=== PATIENT | male | born 1965 | race Caucasian/White ===

== ENCOUNTER 2022-02-08 18:50 | Outpatient (CLI) | payer OTHER, SELFPAY | END 2022-02-08 18:51 | disposition home or self-care (01) | LOC: AMB 02-16 15:38 | PROVIDERS: Visit Provider Emergency Medicine Emergency Medical Services | DX: R50.9 Fever, unspecified (principal); R10.9 Unspecified abdominal pain | CPT/HCPCS: A0425; A0433 ==

== ENCOUNTER 2022-06-24 00:28 | Outpatient (CLI) | payer MEDICARE, OTHER, SELFPAY | END 2022-06-24 00:29 | disposition home or self-care (01) | LOC: AMB 07-19 10:39 | PROVIDERS: Visit Provider Internal Medicine | DX: R21 Rash and other nonspecific skin eruption (principal) | CPT/HCPCS: A0425; A0428 ==

== ENCOUNTER 2022-08-04 16:52 | Emergency (ER) | payer MEDICARE, OTHER, SELFPAY ==
[2022-08-04] VITALS (30 sets, daily range): BP systolic 152–246; BP diastolic 99–129; PULSE 80–116; RESP 20; TEMP 36.6–37.6; O2SAT 84–92
--- NOTE | 2022-08-04 17:03 | CRLHL7_ITS ---
For Patients: As a result of the Century Cures Act, medical imaging exams and procedure reports are released immediately into your electronic medical record. You may view this report before your referring provider. If you have questions, please contact your health care provider. INDICATION: Fever. TECHNIQUE: CT abdomen and pelvis without contrast. Coronal and sagittal reformats were generated. COMPARISON: None. FINDINGS: Lower chest: Patchy bibasilar opacities are likely atelectasis or scarring. The included heart is normal in size. Liver: The liver attenuation is normal. Evaluation for hepatic masses is limited without contrast. Gallbladder and bile ducts: Surgically absent gallbladder. Normal caliber bile ducts. Spleen: Unremarkable. Soft tissue density nodule adjacent to the spleen is likely a splenule. Pancreas: Diffuse pancreatic atrophy. No ductal dilation. Adrenal glands: Unremarkable. No nodules. Kidneys and Ureters: Several scattered calcifications could be small stones or cortical calcifications. Lymph Nodes and Retroperitoneum: Unremarkable. Vasculature: Unremarkable. GI tract: The rectum is not seen, raising the possibility of abdominal peroneal resection. Left lower quadrant end colostomy with parastomal hernia of colon, which is not obstructed. Bowel loops are normal in caliber. Moderate amount of colonic stool. Questionable diverting ostomy in the midline superiorly. Peritoneum/Abdominal Wall: Severe diffuse muscular atrophy. Right inguinal hernia, containing nonobstructed bowel. Pelvic Viscera: Unremarkable. Bladder: Unremarkable. Bones: The bones are demineralized. Multilevel degenerative changes. Destructive changes of the L4 and L5 vertebral bodies, with extensive heterotopic ossification. Destructive changes of the left femoral head and neck, with chronic appearing posterior dislocation of the femur. The right femur is not seen, possibly related to previous amputation. Extensive heterotopic calcifications throughout the pelvis. IMPRESSION: 1. Severe muscular atrophy, with destructive changes of the L4 and L5 vertebral bodies and left femur, with chronic appearing dislocation of the left hip. Extensive heterotopic ossification. 2. Absence of the right femur, possibly from amputation. 3. Changes suggestive of abdominal peroneal resection, with left lower quadrant end colostomy and apparent midline diverting ileostomy. 4. No CT findings to explain the cause of fever, within limitations of lack of contrast Please note that all CT scans at this facility use dose modulation, iterative reconstruction, and/or weight-based dosing when appropriate to reduce radiation dose to as low as reasonably achievable. Dictated by Mariano Foreman MD @ 08/04/2022 6:55:58 PM (Electronically Signed)
--- NOTE | 2022-08-04 17:05 | CRLHL7_ITS ---
For Patients: As a result of the Cures Act, medical imaging exams and procedure reports are released immediately into your electronic medical record. You may view this report before your referring provider. If you have questions, please contact your health care provider. INDICATION: Fever. TECHNIQUE: Chest 1 views. COMPARISON: None. FINDINGS: Cardiovascular and mediastinum: Mild cardiomegaly. Left chest wall pacemaker device. Lungs and pleural spaces: Lingular rounded nodular opacity. No sign of pleural effusion. No pneumothorax. Bones and soft tissues: No significant findings. IMPRESSION: Lingular rounded nodular opacity, possibly airspace disease. Recommend short term repeat chest radiograph after treatment to evaluate for resolution. Dictated by Shalom Torrez MD @ 08/04/2022 6:42:02 PM (Electronically Signed)
--- NOTE | 2022-08-04 17:09 | ED_ITS ---
HPI - General Adult General Date Seen: 08/04/22 Chief complaint: Fever Stated complaint: Fever Time Seen by Provider: 08/04/22 16:57 Source: patient Mode of arrival: EMS Limitations: no limitations and physical limitation History of Present Illness HPI narrative: Patient is a 56-year-old gentleman who is a quadriplegic presents from a intermediate in a [place]. He is concerned that he may have a UTI, as he had a fever there, although here and in EMS there is no documented fever. Tells me is normal blood pressure is 95 and he is running 98. Has a urostomy, on the right side of his abdomen, and also a colostomy. Has had chronic abdominal pain and says that is maybe a little worse, denies any coughing wheezing had a COVID test there that was negative. Normally and has never been to this institution for his care he normally goes to the [facility] system. Has a history of bilateral above knee amputations, Onset (ago): hour(s) Related Data Home Medications Medication Instructions Recorded Confirmed baclofen 20 mg tablet mg 08/04/22 collagenase clostridium histo. 250 topical 08/04/22 unit/gram topical ointment (Santyl) cyclosporine 0.05 % eye drops in a drp 08/04/22 dropperette (Restasis) duloxetine 60 mg capsule,delayed mg PO 08/04/22 release furosemide 20 mg tablet mg 08/04/22 furosemide 40 mg tablet mg 08/04/22 gabapentin 300 mg capsule mg 08/04/22 ipratropium 20 mcg-albuterol 100 inhalation 08/04/22 mcg/actuation mist for inhalation (Combivent Respimat) ketoconazole 2 % shampoo topical 08/04/22 midodrine 10 mg tablet mg 08/04/22 pantoprazole 40 mg tablet,delayed mg PO 08/04/22 release phenytoin sodium extended 30 mg mg PO 08/04/22 capsule (Dilantin) potassium citrate 10 mEq (1,080 meq PO 08/04/22 mg) tablet,extended release trazodone 50 mg tablet mg 08/04/22 Allergies Allergy/AdvReac Type Severity Reaction Status Date / Time hydroxyzine Allergy Verified 08/04/22 17:16 ketamine Allergy Verified 08/04/22 17:16 piperacillin Allergy Verified 08/04/22 17:16 pregabalin Allergy Verified 08/04/22 17:16 tazobactam [From Zosyn] Allergy Verified 08/04/22 17:16 vancomycin Allergy Verified 08/04/22 17:16 Review of Systems Status of ROS: Reports: 10 or more systems reviewed and unremarkable except as noted in History and below [facility] Social History Smoking Status: Unknown if ever smoked Exam Narrative: Exam Narrative: On examination in room 7, he is seen, his vital signs are stable, with a slight elevation of his blood pressure. He has a little of Thor of on what is going on, he has noted no new rashes, but admits he really can not see anything. Oropharynx is normal chest is clear air entry bilaterally with normal heart sounds abdomen is very obese, he has a good stool coming out of the left side of his colostomy in his right urostomy is having clear fluid also. He is making urine also. Skin reveals some a flexural candidiasis, but really no other acute abnormality. Const: Vital Signs, click to edit/add: Vital Signs - 24 hr 08/04/22 17:07 08/04/22 17:30 08/04/22 18:58 Temperature 98.6 F 99.7 F H Pulse Rate Pulse Rate [Right Pulse Oximeter] 110 H 103 H Respiratory Rate 20 Blood Pressure Blood Pressure [Le ft Upper Arm] 192/111 H 152/99 H Pulse Oximetry 92 89 Oxygen Delivery Me thod Room Air Room Air 08/04/22 17:38 08/04/22 18:00 08/04/22 18:44 Temperature Pulse Rate 103 H 99 89 Pulse Rate [Right Pulse Oximeter] Respiratory Rate Blood Pressure Blood Pressure [Le ft Upper Arm] Pulse Oximetry 89 89 88 Oxygen Delivery Me thod 08/04/22 18:46 08/04/22 19:30 08/04/22 19:54 Temperature 97.8 F Pulse Rate 80 Pulse Rate [Right Pulse Oximeter] Respiratory Rate Blood Pressure 224/125 H Blood Pressure [Le ft Upper Arm] Pulse Oximetry 84 L 90 Oxygen Delivery Me thod Room Air 08/04/22 19:00 08/04/22 19:03 08/04/22 19:31 Temperature Pulse Rate 88 102 H 107 H Pulse Rate [Right Pulse Oximeter] Respiratory Rate Blood Pressure 246/129 H Blood Pressure [Le ft Upper Arm] Pulse Oximetry 90 91 92 Oxygen Delivery Me thod 08/04/22 19:32 08/04/22 19:33 08/04/22 20:00 Temperature Pulse Rate 101 H 99 114 H Pulse Rate [Right Pulse Oximeter] Respiratory Rate Blood Pressure 201/128 H Blood Pressure [Le ft Upper Arm] Pulse Oximetry 90 89 90 Oxygen Delivery Me thod 08/04/22 20:02 08/04/22 20:03 08/04/22 20:30 Temperature Pulse Rate 116 H 110 H 107 H Pulse Rate [Right Pulse Oximeter] Respiratory Rate Blood Pressure 176/108 H Blood Pressure [Le ft Upper Arm] Pulse Oximetry 91 91 91 Oxygen Delivery Me thod 08/04/22 20:32 Temperature Pulse Rate 115 H Pulse Rate [Right Pulse Oximeter] Respiratory Rate Blood Pressure 174/123 H Blood Pressure [Le ft Upper Arm] Pulse Oximetry 89 Oxygen Delivery Me thod Documenting provider has reviewed patient's vital signs: yes Course Course Hospital Course: Review of labs reassuring, white blood cell count was normal. his lactate was normal, procalcitonin was normal, urinalysis in a chronically urostomy also was normal, with only 10-25 white cells. His temperature actually orally was also normal, although he states that he never ones a temperature, orally. I explained to him that if he wants to be treated with antibiotics some well I can do this if he feels that this is UTI but rate now I do not feel like he has impending sepsis, his chest x-ray did shown around opacity, but I want a look at other x-rays from [facility] before we say that that is new, I was able to review admission from 07/18/[address] [facility] use admitted for hypotension and question of whether was sepsis, L of his markers of sepsis like today were negative, he never grew anything in his blood, and there was a chronic finding on his left side of his chest, noted on chest x-ray. He did become very angry with them their over his narcotics. I suspect part of his coming to [place] today was because of that interaction. 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 I did offer to put him on antibiotics but he did not want to be on antibiotics going back to the intermediate. Reevaluation(s) Reevaluation #1: I find him resting and sleeping in the room, his temperature done orally was 97.8, pulse was 115, blood pressures come down nicely to 174/123. Time: 21:04 Vital Signs Vital signs: Initial Vital Signs Temperature 98.6 F 08/04/22 17:07 Temperature Source Temporal Artery Scan 08/04/22 17:07 Pulse Rate 110 H 08/04/22 17:07 Respiratory Rate 20 08/04/22 17:07 Blood Pressure 192/111 H 08/04/22 17:07 Blood Pressure Mean 138 08/04/22 17:07 Blood Pressure Position Supine 08/04/22 17:07 Pulse Oximetry 92 08/04/22 17:07 Oxygen Delivery Method 08/04/22 17:07 Vital Signs Temperature 98.6 F 08/04/22 17:07 Pulse Rate 110 H 08/04/22 17:07 Respiratory Rate 20 08/04/22 17:07 Blood Pressure 192/111 H 08/04/22 17:07 Pulse Oximetry 92 08/04/22 17:07 Oxygen Delivery Method 08/04/22 17:07 Temperature 97.8 F 08/04/22 19:30 Pulse Rate 115 H 08/04/22 20:32 Respiratory Rate 20 08/04/22 17:07 Blood Pressure 174/123 H 08/04/22 20:32 Pulse Oximetry 89 08/04/22 20:32 Oxygen Delivery Method 08/04/22 19:54 Medical Decision Making MDM Narrative Medical decision making narrative: To in this evaluation I considered multiple issues including sepsis, from a urinary pulmonary or intra-abdominal source, cellulitis, ulcer, viral illness, bacterial illness, or other cause of a fever. Life-threatening differential diagnosis is include meningitis, encephalitis, pneumonia, intra-abdominal infection, bacteremia, other differential diagnosis include but are not limited to viral upper respiratory tract infection, strep, urinary tract infection, skin infection, osteomyelitis, influenza, fungal infections, diskitis, epidural abscess, or fever of unknown origin. Medical Records Medical records reviewed: Yes I reviewed the patient's medical records Lab Data Lab results reviewed: Yes I reviewed the patient's lab results Labs: Lab Results 08/04/22 08/04/22 08/04/22 Range/Units 17:04 17:04 17:25 WBC 8.13 (4.50-11.00) K/uL RBC 4.15 L (4.30-5.90) m/uL Hgb 12.2 L (13.5-17.5) gm/dL Hct 37.7 (37.0-53.0) % MCV 91 (80-100) fL MCH 29 (26-34) pg MCHC 32 (32-36) gm/dL RDW Coeff of Zuri 17.3 H (11.5-15.5) % Plt Count 248 (140-440) K/uL Neut % (Auto) 59.7 (42.0-72.0) % Lymph % (Auto) 21.4 (20-44) % Gilchrist % (Auto) 12.7 H (0.0-11.0) % Eos % (Auto) 4.9 (0.0-7.0) % Baso % (Auto) 0.4 (0.0-3.0) % Neut # (Auto) 4.86 (1.7-7.0) K/uL Lymph # (Auto) 1.74 (0.90-2.90) K/uL Gilchrist # (Auto) 1.00 H (0.00-0.90) K/UL Eos # (Auto) 0.40 (0.00-0.50) K/uL Baso # (Auto) 0.03 (0.00-0.30) K/uL Sodium (135-149) mmol/L Potassium (3.6-5.1) mmol/L Chloride (96-114) mmol/L Carbon Dioxide (20-32) mmol/L BUN (7-30) mg/dL Creatinine (0.5-1.5) mg/dL Estimated GFR ml/min Glucose (60-115) mg/dL Lactate (0.5-1.9) mmol/L Calcium (8.4-10.6) mg/dL C-Reactive Protein (0.5-1.0) mg/dL Procalcitonin (<0.50) ng/mL Urine Color Yellow (Yellow) Urine Appearance Clear (Clear) Urine pH 7.5 (5.0-8.5) Ur Specific [place] 1.015 (1.000-1.030) Urine Protein 1+ A (Negative) Urine Glucose (UA) Negative (Negative) Urine Ketones Negative (Negative) Urine Blood Trace-intact A (Negative) Urine Nitrite Negative (Negative) Urine Bilirubin Negative (Negative) Urine Urobilinogen 0.2 (0.2-1.0) Ur Leukocyte Esterase 2+ A (Negative) Urine RBC 5-10 A (0-2) Urine WBC 10-25 A (0-5) Ur Squamous Epith Cells None (None-Few) Amorphous Sediment Few A (None) Urine Bacteria Moderate A (None) SARS-CoV-2 (PCR) Negative SARS-CoV-2 (Negative) Influenza Type A (PCR) Negative PCR FLU A (Negative) Influenza Type B (PCR) Negative PCR FLU B (Negative) RSV (PCR) Negative PCR RSV (Negative) 08/04/22 08/04/22 08/04/22 Range/Units 17:25 17:25 17:25 WBC (4.50-11.00) K/uL RBC (4.30-5.90) m/uL Hgb (13.5-17.5) gm/dL Hct (37.0-53.0) % MCV (80-100) fL MCH (26-34) pg MCHC (32-36) gm/dL RDW Coeff of Zuri (11.5-15.5) % Plt Count (140-440) K/uL Neut % (Auto) (42.0-72.0) % Lymph % (Auto) (20-44) % Gilchrist % (Auto) (0.0-11.0) % Eos % (Auto) (0.0-7.0) % Baso % (Auto) (0.0-3.0) % Neut # (Auto) (1.7-7.0) K/uL Lymph # (Auto) (0.90-2.90) K/uL Gilchrist # (Auto) (0.00-0.90) K/UL Eos # (Auto) (0.00-0.50) K/uL Baso # (Auto) (0.00-0.30) K/uL Sodium 141 (135-149) mmol/L Potassium 3.8 (3.6-5.1) mmol/L Chloride 101 (96-114) mmol/L Carbon Dioxide 30 (20-32) mmol/L BUN 30 (7-30) mg/dL Creatinine 0.3 L (0.5-1.5) mg/dL Estimated GFR 141 ml/min Glucose 95 (60-115) mg/dL Lactate (0.5-1.9) mmol/L Calcium 9.6 (8.4-10.6) mg/dL C-Reactive Protein 2.7 H Cancelled (0.5-1.0) mg/dL Procalcitonin 0.07 Cancelled (<0.50) ng/mL Urine Color (Yellow) Urine Appearance (Clear) Urine pH (5.0-8.5) Ur Specific [place] (1.000-1.030) Urine Protein (Negative) Urine Glucose (UA) (Negative) Urine Ketones (Negative) Urine Blood (Negative) Urine Nitrite (Negative) Urine Bilirubin (Negative) Urine Urobilinogen (0.2-1.0) Ur Leukocyte Esterase (Negative) Urine RBC (0-2) Urine WBC (0-5) Ur Squamous Epith Cells (None-Few) Amorphous Sediment (None) Urine Bacteria (None) SARS-CoV-2 (PCR) (Negative) Influenza Type A (PCR) (Negative) Influenza Type B (PCR) (Negative) RSV (PCR) (Negative) 08/04/22 Range/Units 17:25 WBC (4.50-11.00) K/uL RBC (4.30-5.90) m/uL Hgb (13.5-17.5) gm/dL Hct (37.0-53.0) % MCV (80-100) fL MCH (26-34) pg MCHC (32-36) gm/dL RDW Coeff of Zuri (11.5-15.5) % Plt Count (140-440) K/uL Neut % (Auto) (42.0-72.0) % Lymph % (Auto) (20-44) % Gilchrist % (Auto) (0.0-11.0) % Eos % (Auto) (0.0-7.0) % Baso % (Auto) (0.0-3.0) % Neut # (Auto) (1.7-7.0) K/uL Lymph # (Auto) (0.90-2.90) K/uL Gilchrist # (Auto) (0.00-0.90) K/UL Eos # (Auto) (0.00-0.50) K/uL Baso # (Auto) (0.00-0.30) K/uL Sodium (135-149) mmol/L Potassium (3.6-5.1) mmol/L Chloride (96-114) mmol/L Carbon Dioxide (20-32) mmol/L BUN (7-30) mg/dL Creatinine (0.5-1.5) mg/dL Estimated GFR ml/min Glucose (60-115) mg/dL Lactate 1.9 (0.5-1.9) mmol/L Calcium (8.4-10.6) mg/dL C-Reactive Protein (0.5-1.0) mg/dL Procalcitonin (<0.50) ng/mL Urine Color (Yellow) Urine Appearance (Clear) Urine pH (5.0-8.5) Ur Specific [place] (1.000-1.030) Urine Protein (Negative) Urine Glucose (UA) (Negative) Urine Ketones (Negative) Urine Blood (Negative) Urine Nitrite (Negative) Urine Bilirubin (Negative) Urine Urobilinogen (0.2-1.0) Ur Leukocyte Esterase (Negative) Urine RBC (0-2) Urine WBC (0-5) Ur Squamous Epith Cells (None-Few) Amorphous Sediment (None) Urine Bacteria (None) SARS-CoV-2 (PCR) (Negative) Influenza Type A (PCR) (Negative) Influenza Type B (PCR) (Negative) RSV (PCR) (Negative) Imaging Data Chest x-ray: Radiologist's impression: Patient: JOSEPH VANEGAS Facility:?[facility] Patient ID:?[id number] Site Patient ID:?[id number]. Site :?[id number] Study:?XRay Chest -08/04/2022 6:23:31 PM Ordering Physician:Ximena Olivo Final Report: INDICATION: Fever. TECHNIQUE: Chest 1 views. COMPARISON: None. FINDINGS: Cardiovascular and mediastinum: Mild cardiomegaly. Left chest wall pacemaker device. Lungs and pleural spaces: Lingular rounded nodular opacity. No sign of pleural effusion. No pneumothorax. Bones and soft tissues: No significant findings. IMPRESSION: Lingular rounded nodular opacity, possibly airspace disease. Recommend short term repeat chest radiograph after treatment to evaluate for resolution. Dictated by Shalom Torrez MD @ 08/04/2022 6:42:02 PM (Electronic Signature) Patient: JOSEPH VANEGAS Facility:?[facility] Patient ID:?[id number] Site Patient ID:?[id number]. Site :?[id number] Study:?CT Abdomen/Pelvis W/O-08/04/2022 6:21:15 PM Ordering Physician:Ximena Olivo Final Report: INDICATION: Fever. TECHNIQUE: CT abdomen and pelvis without contrast. Coronal and sagittal reformats were generated. COMPARISON: None. FINDINGS: Lower chest: Patchy bibasilar opacities are likely atelectasis or scarring. The included heart is normal in size. Liver: The liver attenuation is normal. Evaluation for hepatic masses is limited without contrast. Gallbladder and bile ducts: Surgically absent gallbladder. Normal caliber bile ducts. Spleen: Unremarkable. Soft tissue density nodule adjacent to the spleen is likely a splenule. Pancreas: Diffuse pancreatic atrophy. No ductal dilation. Adrenal glands: Unremarkable. No nodules. Kidneys and Ureters: Several scattered calcifications could be small stones or cortical calcifications. Lymph Nodes and Retroperitoneum: Unremarkable. Vasculature: Unremarkable. GI tract: The rectum is not seen, raising the possibility of abdominal peroneal resection. Left lower quadrant end colostomy with parastomal hernia of colon, which is not obstructed. Bowel loops are normal in caliber. Moderate amount of c olonic stool. Questionable diverting ostomy in the midline superiorly. Peritoneum/Abdominal Wall: Severe diffuse muscular atrophy. Right inguinal hernia, containing nonobstructed bowel. Pelvic Viscera: Unremarkable. Bladder: Unremarkable. Bones: The bones are demineralized. Multilevel degenerative changes. Destructive changes of the L4 and L5 vertebral bodies, with extensive heterotopic ossifi cation. Destructive changes of the left femoral head and neck, with chronic appearing posterior dislocation of the femur. The right femur is not seen, possibly related to previous amputation. Extensive heterotopic calcifications throughout the pelvis. IMPRESSION: 1. Severe muscular atrophy, with destructive changes of the L4 and L5 vertebral bodies and left femur, with chronic appearing dislocation of the left hip. Extensive heterotopic ossification. 2. Absence of the right femur, possibly from amputation. 3. Changes suggestive of abdominal peroneal resection, with left lower quadrant end colostomy and apparent midline diverting ileostomy. 4. No CT findings to explain the cause of fever, within limitations of lack of contrast Please note that all CT scans at this facility use dose modulation, iterative reconstruction, and/or weight-based dosing when appropriate to reduce radiation dose to as low as reasonably achievable. Dictated by Mariano Foreman MD @ 08/04/2022 6:55:58 PM (Electronic Signature) Discharge Plan Discharge Clinical Impression: History of recurrent UTIs, History of fever Patient Disposition: Xfer Other Condition: Stable Additional Instructions: Back to intermediate continue medications return if fevers chills hypotension or other signs of sepsis, we will culture your urine, and your blood. Prescriptions: No Action furosemide 40 mg tablet ketoconazole 2 % shampoo TOPICAL trazodone 50 mg tablet baclofen 20 mg tablet potassium citrate 10 mEq (1,080 mg) tablet extended release PO pantoprazole 40 mg tablet,delayed release (DR/EC) PO gabapentin 300 mg capsule furosemide 20 mg tablet Santyl 250 unit/gram ointment TOPICAL Dilantin 30 mg capsule PO midodrine 10 mg tablet cyclosporine [Restasis] 0.05 % dropperette duloxetine 60 mg capsule,delayed release(DR/EC) PO Combivent Respimat 20-100 mcg/actuation mist INHALATION Stand Alone Forms: [facility] Info Instructions
[2022-08-04 17:23] LABS: Appearance Urine Clear (Clear); Bilirubin Urine Negative (Negative); Blood Urine Trace-intact (Negative); Color Urine Yellow (Yellow); Glucose Urine Negative (Negative); Ketones Urine Negative (Negative); Leukocyte Esterase Urine 2+ (Negative); Nitrite Urine Negative (Negative); Protein Urine 1+ (Negative); Specific Gravity Urine 1.015 (1.000-1.030); Urobilinogen Urine 0.2 (0.2-1.0); pH Urine 7.5 (5.0-8.5)
[2022-08-04 17:32] LABS: Amorphous Sediment Urine Few; Bacteria Urine Moderate
[2022-08-04 17:35] LABS: Lactate* 1.9 mmol/L (0.5-1.9)
[2022-08-04 17:38] LABS: Basophils Absolute Auto 0.03 K/uL (0.00-0.30); Basophils Percent Auto 0.4 % (0.0-3.0); Eosinophils Percent Auto 4.9 % (0.0-7.0); Hematocrit 37.7 % (37.0-53.0); Hemoglobin* 12.2 gm/dL (13.5-17.5); Immature Granulocytes Abs Auto 0.07 K/uL (0.00-0.30); Immature Granulocytes Pct Auto 0.9 %; Lymphocytes Absolute Auto 1.74 K/uL (0.90-2.90); Lymphocytes Percent Auto 21.4 % (20-44); Mean Corpuscular HGB Conc 32 gm/dL (32-36); Mean Corpuscular Hemoglobin 29 pg (26-34); Mean Corpuscular Volume 91 fL (80-100); Monocytes Percent Auto 12.7 % (0.0-11.0); Neutrophils Absolute Auto 4.86 K/uL (1.7-7.0); Neutrophils Percent Auto 59.7 % (42.0-72.0); Platelet Count* 248 K/uL (140-440); RDW Coefficient of Variation % 17.3 % (11.5-15.5); Red Blood Count 4.15 m/uL (4.30-5.90); White Blood Count* 8.13 K/uL (4.50-11.00)
[2022-08-04 17:41] LABS: Slide Review Reflex No
[2022-08-04 17:54] LABS: Chloride* 101 mmol/L (96-114); Potassium* 3.8 mmol/L (3.6-5.1); Sodium* 141 mmol/L (135-149)
[2022-08-04 17:57] LABS: Blood Urea Nitrogen* 30 mg/dL (7-30); Carbon Dioxide* 30 mmol/L (20-32); Creatinine* 0.3 mg/dL (0.5-1.5); Estimated Glomerular Filt Rate 141 ml/min
[2022-08-04 17:58] LABS: Calcium* 9.6 mg/dL (8.4-10.6); Glucose* 95 mg/dL (60-115)
[2022-08-04 18:00] LABS: C Reactive Protein* 2.7 mg/dL (0.5-1.0)
[2022-08-04 18:02] LABS: PCR FLU A Negative PCR FLU A (Negative); PCR FLU B Negative PCR FLU B (Negative); PCR RSV Negative PCR RSV (Negative)
[2022-08-04 18:11] LABS: SARS PCR* Negative SARS-CoV-2 (Negative)
[2022-08-04 18:14] LABS: Procalcitonin* 0.07 ng/mL (<0.50)
[2022-08-04] MEDS: ONDANSETRON 2 MG/ML inj 4 MG IVP (18:39)
[2022-08-04] MEDS: HYDROmorphone 2 MG TABLET PO (19:00)
[2022-08-04] MEDS: HEPARIN 500 UNIT/5 ML SYRINGE IVF (21:35)
--- NOTE | 2022-08-04 21:40 | ED.NURSE ---
Pt has a unique mouth-operated call light fixture from home that was attached to the IV pole on the right side of the patient's bed. This fixture was set up by another staff member earlier during the patient's visit. The fixture is a long flexible hose with a rigid plastic mouthpiece for the pt to blow into to activate the call light. Post Anesthesia Nurse entered the room at approx 2130 hours to heparin lock pt's central line port. Post Anesthesia Nurse moved IV pole to gain access to pt's port area and when the IV pole was moved it unintentionally caused the call light fixture to strike the patient in the right eye. Pt c/o pain immediately and conventional underwriter quickly moved the IV pole and call light away from pt. Post Anesthesia Nurse apologized to the pt immediately. notified promptly of the potential injury to the pt. entered room a short time later to conduct eye exam.
--- NOTE | 2022-08-04 22:57 | ED.NURSE ---
Approx 650mLs of cloudy pale yellow urine emptied from pt's urostomy maher bag.
--- NOTE | 2022-08-04 23:45 | ED.NURSE ---
Pt O2 sats noted to be repeatedly dipping down to ~70% while pt is resting in room. notified. Assurance Analyst offered to provide pt with supplemental O2 to help maintain O2 sats while pt sleeps. Pt refused O2, states I don't want that, I just want to get the hell out of here. aware.
[2022-08-05 00:02] VITALS: BP 126/78; PULSE 106; O2SAT 91
--- NOTE | 2022-08-05 00:19 | ED.NURSE ---
update to living facility point of care specialist on dc information.
--- NOTE | 2022-08-05 00:39 | ED.NURSE ---
patient resting in bed, both eyes open spontaneously when entering the room. pt states this is ridiculous i want to go home, education on ems transport protocol and waiting for an available rig for transportation.
[2022-08-05 01:00] VITALS: PULSE 100; O2SAT 94
--- NOTE | 2022-08-05 02:46 | ED.NURSE ---
update to living facility on pt transferring with [facility].
--- NOTE | 2022-08-06 09:16 | ED.NURSE ---
Received call from lab re: urine culture. Patient has ESBL in his urine. Dr Mata notified of results. Patient has chronic ESBL in is urine and patient is aware of this dx.
== END 2022-08-05 02:58 | disposition other institution (70) ==
PROVIDERS: Emergency Provider Family Medicine
DX: R50.9 Fever, unspecified (principal); Z87.440 Personal history of urinary (tract) infections; S00.10XA Contusion of unspecified eyelid and periocular area, initial encounter; W22.8XXA Striking against or struck by other objects, initial encounter; Y93.89 Activity, other specified; Y92.238 Other place in hospital as the place of occurrence of the external cause; Y99.9 Unspecified external cause status
CPT/HCPCS: 36415; 71045; 74176; 80048; 81001; 83605; 84145; 85025; 86140; 87040; 87086; 87186; 87502; 87634; 87635; 96374; 96375; 99284; A9270; J1642; J2405

== ENCOUNTER 2022-08-05 02:38 | Outpatient (CLI) | payer MEDICARE, OTHER, SELFPAY | END 2022-08-05 02:39 | disposition home or self-care (01) | LOC: AMB 08-07 09:53 | PROVIDERS: Visit Provider Emergency Medicine | DX: R50.9 Fever, unspecified (principal) | CPT/HCPCS: A0425; A0428 ==